=== PATIENT | male | born 1980 | race Caucasian/White ===

== ENCOUNTER 2016-09-05 00:01 | Emergency (ER) | payer MEDICAID ==
[~2016-09-05] VITALS: Ht 185.4 cm; Wt 98.1 kg
[2016-09-05] MEDS ORDERED: HYDROmorphone 1 MG/ML, 1ML ONE (00:27)
[2016-09-05] MEDS ORDERED: ONDANSETRON ODT 4 MG ONE (00:28)
[2016-09-05] MEDS ORDERED: ONDANSETRON ODT 4 MG PO ONE (00:30)
[2016-09-05] MEDS ORDERED: HYDROmorphone 1 MG/ML, 1ML IM ONE (00:30)
[2016-09-05] MEDS ORDERED: KETOROLAC 30 MG/1 ML IM ONE (02:00)
[2016-09-05] MEDS ORDERED: KETOROLAC 30 MG/1 ML ONE (02:07)
[2016-09-05 02:36] VITALS: BP 133/101
== END 2016-09-05 02:45 | disposition home or self-care (01) ==
LOC: ED 02:39
DX: S20.211A Contusion of right front wall of thorax, initial encounter (principal); S40.012A Contusion of left shoulder, initial encounter; S70.01XA Contusion of right hip, initial encounter; I10 Essential (primary) hypertension; W19.XXXA Unspecified fall, initial encounter; Y93.89 Activity, other specified; Y92.488 Other paved roadways as the place of occurrence of the external cause; Y99.8 Other external cause status
CPT/HCPCS: 71020; 73030; 73502; 96372; 99284; J1170; J1885; Q0162

== ENCOUNTER 2016-10-22 14:53 | Emergency (ER) | payer MEDICAID ==
[~2016-10-22] VITALS: Ht 185.4 cm; Wt 94.5 kg
[2016-10-22 15:21] LABS: HEMOGLOBIN 16.4 g/dL (13.7-18.0); WHITE BLOOD COUNT 8.6 x10^3/uL (3.4-10)
[2016-10-22 15:34] LABS: BLOOD UREA NITROGEN 10 mg/dL (7-18)
[2016-10-22 15:39] LABS: IS PT STATUS REG ER OR PRE ER? YES
[2016-10-22] MEDS ORDERED: ASPIRIN 81 MG TABLET CHEW ONE (15:40)
[2016-10-22] MEDS ORDERED: ASPIRIN 81 MG TABLET CHEW PO ONE (16:00)
[2016-10-22 16:30] VITALS: BP 128/74
== END 2016-10-22 16:34 | disposition left against medical advice (07) ==
LOC: ED 15:17
DX: R07.89 Other chest pain (principal); M25.562 Pain in left knee; F17.200 Nicotine dependence, unspecified, uncomplicated
CPT/HCPCS: 36415; 71010; 80048; 82040; 84484; 85025; 93005; 99285

== ENCOUNTER 2018-03-11 10:33 | Emergency (ER) | payer MEDICAID ==
[~2018-03-11] VITALS: Ht 185.4 cm; Wt 110.5 kg
[2018-03-11] MEDS ORDERED: HYDROmorphone 1 MG/ML, 1ML IM STA (10:58)
[2018-03-11] MEDS ORDERED: HYDROmorphone 2 MG/ML, 1ML ONE (11:03)
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
[2018-03-11 11:24] VITALS: BP 143/104
[2018-03-11] MEDS ORDERED: PLEASE ENTER HEIGHT AND WEIGHT MC SCH (11:30)
--- NOTE | 2018-03-11 12:14 | NUR ---
Provided report to Zora Galvan RN. All questions answered. Zora Galvan RN to assume care of pt.
[2018-03-11] MEDS ORDERED: HYDROmorphone 1 MG/ML, 1ML IM SCH (12:30)
== END 2018-03-11 12:44 | disposition home or self-care (01) ==
LOC: ED 12:21
DX: G89.11 Acute pain due to trauma (principal); M79.661 Pain in right lower leg; X58.XXXA Exposure to other specified factors, initial encounter; Y93.89 Activity, other specified; Y92.410 Unspecified street and highway as the place of occurrence of the external cause; Y99.8 Other external cause status
CPT/HCPCS: 29515; 73590; 96372; 99284; J1170

== ENCOUNTER 2018-07-12 03:47 | Emergency (ER) | payer SELFPAY ==
[~2018-07-12] VITALS: Ht 185.4 cm; Wt 101.5 kg
[2018-07-12 03:49] VITALS: BP 155/104
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
--- NOTE | 2018-07-12 04:10 | NUR ---
PT IN XRAY NOW.
[2018-07-12] MEDS ORDERED: IBUPROFEN 800 MG TABLET ONE (04:37)
--- NOTE | 2018-07-12 04:40 | NUR ---
PT MEDICATED PER EMAR. PT TOLERATED WELL.
--- NOTE | 2018-07-12 04:55 | NUR ---
PT GIVEN DC INSTRUCTIONS AND SCRIPT. PT EDUCATED REGARDING DC MEDICATION. PT AMB TO DC WITH STEADY GAIT. NO ACUTE DISTRESS AT DC. PT'S AOX4. RESPS EVEN AND UNLABORED.
[2018-07-12] MEDS ORDERED: IBUPROFEN 800 MG TABLET PO ONE (05:00)
== END 2018-07-12 04:56 | disposition home or self-care (01) ==
LOC: ED 04:50
DX: R07.89 Other chest pain (principal); I10 Essential (primary) hypertension; F17.200 Nicotine dependence, unspecified, uncomplicated; Y04.0XXA Assault by unarmed brawl or fight, initial encounter; Y93.89 Activity, other specified; Y92.89 Other specified places as the place of occurrence of the external cause; Y99.8 Other external cause status
CPT/HCPCS: 99283

== ENCOUNTER 2018-08-08 17:43 | Inpatient (IN) | payer MEDICAID ==
[~2018-08-08] VITALS: Ht 185.4 cm; Wt 104.3 kg
--- NOTE | 2018-08-08 18:19 | NUR ---
break coverage: assumed care of pt on behalf of primary RN for lunch breack only. pt resting on gurney in position of comfort. dozing intermittently. lab at bedside to draw
[2018-08-08 18:26] LABS: MEAN CORPUSCULAR HEMOGLOBIN 31.8 pg (27.5-34.5); MEAN CORPUSCULAR HGB CONC 33.7 g/dL (33.2-36.2); MEAN CORPUSCULAR VOLUME 94.2 fL (81-97); MEAN PLATELET VOLUME 8.5 fL (7.4-10.4); PLATELET COUNT 244 x10^3/uL (130-400); RED BLOOD COUNT 4.63 x10^6/uL (4.38-5.82); RED CELL DISTRIBUTION WIDTH 12.4 % (9.4-14.8)
[2018-08-08] MEDS ORDERED: SODIUM CHLORIDE FLUSH 10ML SYR IVF ONE (18:30)
[2018-08-08] MEDS ORDERED: KETOROLAC 30 MG/1 ML IVPush ONE (18:30)
[2018-08-08 18:37] LABS: ALANINE AMINOTRANSFERASE 27 U/L (12-78); ALBUMIN 4.1 g/dL (3.4-5.0); ANION GAP 5 mmol/L (5-15); CALCIUM 8.9 mg/dL (8.5-10.1); CHLORIDE 108 mmol/L (98-107)
[2018-08-08 18:40] LABS: ALKALINE PHOSPHATASE 88 U/L (45-117); BILIRUBIN,TOTAL 1.6 mg/dL (0.2-1.0); CREATININE 1.83 mg/dL (0.7-1.3); TOTAL PROTEIN 6.9 g/dL (6.4-8.2)
[2018-08-08] MEDS ORDERED: KETOROLAC 30 MG/1 ML ONE (18:47)
[2018-08-08 18:51] LABS: BASOPHILS # (AUTO) 0.07 x10^3/uL (0-0.1); BASOPHILS % (AUTO) 0 % (0-1); EOSINOPHILS # (AUTO) 0.04 x10^3/uL (0-0.4); EOSINOPHILS % (AUTO) 0 % (1-7); LYMPHOCYTES # (AUTO) 0.83 x10^3/uL (1-3.4); LYMPHOCYTES % (AUTO) 4 % (22-44); MONOCYTES # (AUTO) 1.39 x10^3/uL (0.2-0.8); MONOCYTES % (AUTO) 7 % (2-9); NEUTROPHILS # (AUTO) 16.55 x10^3/uL (1.8-6.8); NEUTROPHILS % (AUTO) 88 % (42-75)
--- NOTE | 2018-08-08 18:52 | NUR ---
PT TO CT
[2018-08-08 18:57] LABS: MD SCAN
[2018-08-08] MEDS ORDERED: MORPHINE SULFATE 4 MG/ML, 1ML ONE (19:28)
[2018-08-08] MEDS ORDERED: SODIUM CHLORIDE 0.9%, 500ML IVBOLUS ONE (19:30)
[2018-08-08] MEDS ORDERED: SODIUM CHLORIDE 0.9% 1,000ML IVBOLUS ONE (19:30)
[2018-08-08] MEDS ORDERED: MORPHINE SULFATE 4 MG/ML, 1ML IVPush ONE (19:30)
--- NOTE | 2018-08-08 19:41 | NUR ---
IVF INFUSING. STILL NEED UA BUT PT UNABLE TO PEE AT THIS TIME, NOTIFIED
[2018-08-08] MEDS ORDERED: CEFTRIAXONE PMX 1GM/50ML 50 ML IV ONE (20:00)
[2018-08-08] MEDS ORDERED: CEFTRIAXONE PMX 1GM/50ML 50 ML ONE (20:02)
--- NOTE | 2018-08-08 20:03 | NUR ---
urine sent to lab
--- NOTE | 2018-08-08 20:20 | NUR ---
2ND L IVF INFUSING, IV ABX STARTED AFTER BC DRAWN.
[2018-08-08 20:22] LABS: MICROSCOPIC NOT IND
[2018-08-08 20:31] LABS: CULTURE INDICATED? NO
[2018-08-08] MEDS ORDERED: MORPHINE SULFATE 4 MG/ML, 1ML IVPush PRN (21:00)
--- NOTE | 2018-08-08 21:09 | NUR ---
PT SLEEPING IN [facility], PT TO BE ADMITTED. AWAITING BED ASSIGNMENT, CALL LIGHT WITHIN REACH
[2018-08-08] MEDS ORDERED: LORazepam 2 MG/ML, 1ML IVPush PRN (21:30)
[2018-08-08] MEDS ORDERED: CEFTRIAXONE PMX 2GM/50ML 50 ML IV SCH (21:30)
[2018-08-08] MEDS ORDERED: ONDANSETRON 2MG/ML, 2ML IVPush PRN (21:30)
[2018-08-08] MEDS ORDERED: ACETAMINOPHEN 325 MG TABLET PO PRN (21:30)
--- NOTE | 2018-08-08 21:48 | NUR ---
REPORT TO TIMBO MCDANIEL
[2018-08-08 22:02] VITALS: BP 162/103
[2018-08-08] MEDS: SODIUM CHLORIDE 0.9% 1,000 ML IV SCH (22:22)
[2018-08-08] MEDS: morphine SULFATE 10 MG/ML, 1ML IVPush PRN (22:22)
[2018-08-08] MEDS: hydrALAzine 20 MG/ML, 1ML IVPush PRN (22:38)
[2018-08-09] MEDS: morphine SULFATE 10 MG/ML, 1ML IVPush PRN ×4 (01:49→11:19)
[2018-08-09 01:55] VITALS: BP 149/104
[2018-08-09] MEDS: SODIUM CHLORIDE 0.9% 1,000 ML IV SCH ×3 (04:43→15:41)
[2018-08-09] MEDS: hydrALAzine 20 MG/ML, 1ML IVPush PRN (05:25)
[2018-08-09 06:04] LABS: BASOPHILS # (AUTO) 0.03 x10^3/uL (0-0.1); BASOPHILS % (AUTO) 0 % (0-1); EOSINOPHILS # (AUTO) 0.07 x10^3/uL (0-0.4); EOSINOPHILS % (AUTO) 0 % (1-7); LYMPHOCYTES # (AUTO) 1.23 x10^3/uL (1-3.4); LYMPHOCYTES % (AUTO) 7 % (22-44); MD NO; MEAN CORPUSCULAR HEMOGLOBIN 31.8 pg (27.5-34.5); MEAN CORPUSCULAR HGB CONC 33.5 g/dL (33.2-36.2); MEAN CORPUSCULAR VOLUME 94.9 fL (81-97); MEAN PLATELET VOLUME 8.6 fL (7.4-10.4); MONOCYTES # (AUTO) 1.39 x10^3/uL (0.2-0.8); MONOCYTES % (AUTO) 8 % (2-9); NEUTROPHILS # (AUTO) 13.95 x10^3/uL (1.8-6.8); NEUTROPHILS % (AUTO) 84 % (42-75); PLATELET COUNT 214 x10^3/uL (130-400); RED BLOOD COUNT 4.39 x10^6/uL (4.38-5.82); RED CELL DISTRIBUTION WIDTH 12.6 % (9.4-14.8)
[2018-08-09 06:12] LABS: ALBUMIN 3.3 g/dL (3.4-5.0); ANION GAP 5 mmol/L (5-15); CALCIUM 8.3 mg/dL (8.5-10.1); CHLORIDE 112 mmol/L (98-107)
[2018-08-09 06:15] LABS: ALANINE AMINOTRANSFERASE 48 U/L (12-78); ALKALINE PHOSPHATASE 78 U/L (45-117); BILIRUBIN,TOTAL 1.7 mg/dL (0.2-1.0); CREATININE 1.41 mg/dL (0.7-1.3)
[2018-08-09 08:10] VITALS: BP 134/94
[2018-08-09] MEDS ORDERED: SENNA/DOCUSATE TABLET PO SCH (09:00)
[2018-08-09] MEDS ORDERED: TAMSULOSIN 0.4 MG CAP.ER.24H PO SCH (09:00)
[2018-08-09] MEDS ORDERED: MIDAZOLAM 1 MG/ML, 2ML ONE (12:20)
[2018-08-09] MEDS ORDERED: FENTANYL PF 100 MCG/2ML ONE ×2 (12:20→12:21)
[2018-08-09] MEDS ORDERED: DEXAMETHASONE 4 MG/ML, 1ML ONE (12:21)
[2018-08-09] MEDS ORDERED: ROCURONIUM 10MG/ML,5ML ONE (12:21)
[2018-08-09] MEDS ORDERED: MIDAZOLAM 1 MG/ML, 5ML ONE (12:21)
[2018-08-09] MEDS ORDERED: CEFAZOLIN 1,000 MG ONE (12:21)
[2018-08-09] MEDS ORDERED: SUCCINYLCHOLINE 20 MG/ML, 10ML ONE (12:21)
[2018-08-09] MEDS ORDERED: PROPOFOL 10 MG/ML, 20ML ONE (12:21)
[2018-08-09] MEDS ORDERED: FENTANYL PF 100 MCG/2ML IV PRN (13:00)
[2018-08-09] MEDS ORDERED: HYDROmorphone 1 MG/ML, 1ML INJ IV PRN (13:00)
[2018-08-09] MEDS ORDERED: MEPERIDINE/PF 25MG/0.5ML IVPush PRN (13:00)
[2018-08-09] MEDS ORDERED: PROMETHAZINE 25 MG/ML, 1ML IV PRN (13:00)
[2018-08-09] MEDS ORDERED: ALBUTEROL SULFATE 2.5 MG/3 ML NPPB PRN (13:00)
[2018-08-09] MEDS ORDERED: OXYcodone 5 MG/5 ML ORAL.SOL UDC PO PRN (13:00)
[2018-08-09] MEDS ORDERED: KETOROLAC 30 MG/1 ML IV PRN (13:00)
[2018-08-09] MEDS ORDERED: LABETALOL 5MG/ML, 20ML IV PRN (13:00)
[2018-08-09] MEDS ORDERED: OXYcodone 5 MG/5 ML ORAL.SOL UDC ONE (13:34)
[2018-08-09 14:00] VITALS: BP 143/90
[2018-08-09] MEDS ORDERED: LORazepam 1MG TABLET PO PRN (15:30)
[2018-08-09] MEDS ORDERED: NICOTINE 21 MG/24 HR PATCH.TD24 TD SCH (15:30)
[2018-08-10] MEDS ORDERED: LOSARTAN 50MG TABLET PO SCH (09:00)
[2018-08-10] MEDS ORDERED: HYDROCHLOROTHIAZIDE 25 MG TABLET PO SCH (09:00)
== END 2018-08-09 17:05 | disposition left against medical advice (07) | DRG 854 ==
LOC: MERGE 20:52 → ED 20:52 → EDIP 20:53 → 3NE 21:57
PROVIDERS: ADMIT Family Medicine; ATTEND Family Medicine
PROC: 0TC78ZZ Extirpation of Matter from Left Ureter, Via Natural or Artificial Opening Endoscopic (ICD-10-PCS; principal; 2018-08-09 12:45)
DX: A41.9 Sepsis, unspecified organism (principal); N17.9 Acute kidney failure, unspecified; N13.2 Hydronephrosis with renal and ureteral calculous obstruction; E86.0 Dehydration; F10.10 Alcohol abuse, uncomplicated; Y90.9 Presence of alcohol in blood, level not specified; F12.90 Cannabis use, unspecified, uncomplicated; F17.200 Nicotine dependence, unspecified, uncomplicated; I10 Essential (primary) hypertension; K59.00 Constipation, unspecified; R65.20 Severe sepsis without septic shock; Z53.21 Procedure and treatment not carried out due to patient leaving prior to being seen by health care provider
CPT/HCPCS: 36415; 74176; 80053; 81003; 82360; 83605; 85025; 87040; 88300; G0378; J0690; J0696; J1100; J2250; J2704; J3010; C1758; C1769; J0330; J0360; J2270; J7030; J7040

== ENCOUNTER 2018-08-10 02:56 | Emergency (ER) | payer MEDICAID ==
[~2018-08-10] VITALS: Ht 185.4 cm; Wt 105.0 kg
[2018-08-10 03:02] VITALS: BP 162/104
[2018-08-10] MEDS ORDERED: ONDANSETRON ODT 4 MG ONE (03:40)
[2018-08-10] MEDS ORDERED: KETOROLAC 60 MG/2 ML ONE (03:40)
--- NOTE | 2018-08-10 03:50 | NUR ---
PT RESTING IN GOWN IN [facility] AT THIS TIME; CALL LIGHT WITHIN REACH. PT URINE COLLECTED AND TUBED TO LAB. PT MEDICATED PER MAR FOR PAIN.
[2018-08-10] MEDS ORDERED: KETOROLAC 30 MG/1 ML IM ONE (04:00)
[2018-08-10] MEDS ORDERED: ONDANSETRON ODT 4 MG PO ONE (04:00)
--- NOTE | 2018-08-10 04:05 | NUR ---
PT TO US VIA [facility].
[2018-08-10 04:12] LABS: MEAN CORPUSCULAR HEMOGLOBIN 30.9 pg (27.5-34.5); MEAN CORPUSCULAR HGB CONC 33.1 g/dL (33.2-36.2); MEAN CORPUSCULAR VOLUME 93.4 fL (81-97); MEAN PLATELET VOLUME 8.8 fL (7.4-10.4); PLATELET COUNT 209 x10^3/uL (130-400); RED BLOOD COUNT 3.98 x10^6/uL (4.38-5.82); RED CELL DISTRIBUTION WIDTH 12.9 % (9.4-14.8)
[2018-08-10 04:13] LABS: MICROSCOPIC INDICATED
[2018-08-10 04:14] LABS: CULTURE INDICATED? YES
[2018-08-10 04:22] LABS: ALBUMIN 2.8 g/dL (3.4-5.0); ANION GAP 5 mmol/L (5-15); CHLORIDE 110 mmol/L (98-107)
[2018-08-10 04:26] LABS: BASOPHILS # (AUTO) 0.03 x10^3/uL (0-0.1); BASOPHILS % (AUTO) 0 % (0-1); EOSINOPHILS # (AUTO) 0.08 x10^3/uL (0-0.4); EOSINOPHILS % (AUTO) 1 % (1-7); LYMPHOCYTES % (AUTO) 5 % (22-44); MD SCAN; MONOCYTES # (AUTO) 0.91 x10^3/uL (0.2-0.8); MONOCYTES % (AUTO) 7 % (2-9); NEUTROPHILS # (AUTO) 11.46 x10^3/uL (1.8-6.8); NEUTROPHILS % (AUTO) 87 % (42-75)
[2018-08-10 04:29] LABS: AMPHETAMINE SCREEN, URINE Positive (Negative); BARBITURATE SCREEN, URINE Negative (Negative); BENZODIAZEPINE SCREEN, URINE Positive (Negative); CANNABINOID SCREEN, URINE Negative (Negative); COCAINE SCREEN, URINE Negative (Negative); METHADONE SCREEN, URINE Negative (Negative); OPIATE SCREEN, URINE Positive (Negative)
[2018-08-10 04:29] LABS: ALANINE AMINOTRANSFERASE 33 U/L (12-78); ALKALINE PHOSPHATASE 72 U/L (45-117); BILIRUBIN,TOTAL 0.8 mg/dL (0.2-1.0); CALCIUM 8.4 mg/dL (8.5-10.1); CREATININE 1.19 mg/dL (0.7-1.3); TOTAL PROTEIN 5.9 g/dL (6.4-8.2)
--- NOTE | 2018-08-10 05:48 | NUR ---
PT D/C WITH D/C SUMMARY AND SCRIPTS. ALL QUESTIONS ANSWERED. PT AMBULATES TO REGISTRATION DESK WITH STEADY GAIT HOME. PT DENIES ANY OTHER NEEDS PERTAINING TO THIS VISIT. PER PT, PT MOTHER PICKING PT UP IN PRIVATE VEHICLE FOR TRANSPORT HOME.
== END 2018-08-10 05:51 | disposition home or self-care (01) ==
LOC: ED 03:06
DX: N20.1 Calculus of ureter (principal); F15.129 Other stimulant abuse with intoxication, unspecified; I10 Essential (primary) hypertension; F17.200 Nicotine dependence, unspecified, uncomplicated
CPT/HCPCS: 36415; 76770; 80053; 80307; 81001; 83690; 85025; 87086; 96372; 99284; J1885; Q0162

== ENCOUNTER 2019-06-25 09:32 | Emergency (ER) | payer MEDICAID ==
[~2019-06-25] VITALS: Ht 185.4 cm; Wt 106.0 kg
[2019-06-25 09:36] VITALS: BP 157/102
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
[2019-06-25] MEDS ORDERED: HYDROcodone/APAP 5/325 TABLET ONE (09:54)
--- NOTE | 2019-06-25 09:57 | NUR ---
PT MEDICATED PER EMAR. PT TOLERATED WELL.
[2019-06-25] MEDS ORDERED: HYDROcodone/APAP 5/325 TABLET PO ONE (10:00)
--- NOTE | 2019-06-25 10:18 | NUR ---
Patient given discharge instructions and they have confirmed that they understand the instructions.
--- NOTE | 2019-06-25 10:21 | NUR ---
TASK RN: PT LEFT WITH ALL PERSONAL BELONGINGS. Patient/Caregiver given discharge instructions and they have confirmed that they understand the instructions. Patient ambulatory with steady gait.
== END 2019-06-25 10:19 | disposition home or self-care (01) ==
LOC: ED 09:53
DX: L03.114 Cellulitis of left upper limb (principal); T63.301A Toxic effect of unspecified spider venom, accidental (unintentional), initial encounter; F17.210 Nicotine dependence, cigarettes, uncomplicated; Y92.89 Other specified places as the place of occurrence of the external cause
CPT/HCPCS: 29125; 99283